=== PATIENT | male | born 1955 | race Caucasian/White ===

== ENCOUNTER 2016-12-18 17:40 | Inpatient (IN) | payer OTHER ==
[~2016-12-18] VITALS: Ht 177.8 cm; Wt 71.2 kg
[~2016-12-18 17:40] MED LIST: ACET325 PO; ASPI325T PO; BACT800T5 PO; DILT120C49 PO; LEVO.1 PO; LISI2.5T55 PO; LORA0.5T PO; SPRY100T OR; VIAG100T PO
[2016-12-18 17:41] VITALS: BP 132/77; PULSE 98; RESP 20; TEMP 98.3; O2SAT 98
--- NOTE | 2016-12-18 18:43 | PD ---
HPI Chief Complaint: Cardiac Complaint Time Seen by Provider: 18:43 Travel History International Travel<30 days: No Contact w/Intl Traveler<30days: No Traveled to known affect area: No History of Present Illness HPI 61-year-old male presents to the emergency department for evaluation of a chill for ablation with RVR. Patient states that around 4:30, he felt his got into A. fib. He does have a history of A. fib, states he had a cardiac ablation done approximately 2 years ago and has not been in A. fib since until today. He states that when it came on, he felt shortness of breath, this has resolved. Patient states he feels like his heart is racing. He denies any chest pain. No abdominal pain. No vomiting. He states his privacy attorney is Dr. Mejia. Patient does report a history of CML and is on Bosulif. Patient is concerned because many medications interact with it. He also has a history of hypothyroidism and states that sometimes that medication changes with Synthroid will put him in A. fib. He states he did have a recent medication change in his Synthroid. Patient states he is not on any anticoagulants at this time. [facility] Past Medical History Arthritis: Yes (NECK) Atrial Fibrillation: Yes Anxiety: Yes (TAKES LORAZEPAM) Heart Rhythm Problems: Yes (ATRIAL FIB) Cancer: Yes (CML ) Cardiovascular Problems: Yes (AFIB(took off meds few years ago)) Chemotherapy: Yes (BOSILUF(CML)) Diminished Hearing: No Endocrine: Yes Gastrointestinal Disorders: No Heparin Induced Thrombocytopen: No Hypertension: Yes Implanted Vascular Access Dvce: No Medical other: Yes (CARDIOVERTED JANUARY 2011 FOR A FIB) Musculoskeletal: Yes (ARTHRITIS NECK) Respiratory: No Thyroid Disease: Yes Past Surgical History Body Medical Devices: SCREW RIGHT FOOT Endocrine Surgery: Yes (THYROIDECTOMY 2010, PAROTID SURGERY LEFT) Joint Replacement: No Oral Surgery: Yes (DENTAL SURGERIES (GUM GRAFTS)) Tonsillectomy: Yes Other Surgery: Yes (THYROID REMOVAL 2010) Social History Alcohol Use: Yes (RARELY) Tobacco Use: No Substance Use: No Allergies-Medications (Allergen,Severity, Reaction): Coded Allergies: No Known Allergies (Unverified , 12/18/16) Reported Meds & Prescriptions Reported Meds & Active Scripts Active Reported Vitamin D (Cholecalciferol) 400 Unit/Ml Drops 400 Units PO DAILY Calcium 1200 (Calcium Carbonate-Vitamin D W/Minerals) 1,200-1,000 Mg-Unit Chew 1 Tab CHEW DAILY Ginseng 100 Mg Cap 1,000 Mg PO BID [bosulif] 500 Mg PO DAILY Temazepam 15 Mg Cap 15 Mg PO HS PRN Synthroid (Levothyroxine Sodium) 150 Mcg Tab 150 Mcg PO DAILY Viagra (Sildenafil Citrate) 100 Mg Tab 100 Mg PO DAILY PRN Lisinopril 2.5 Mg Tab 2.5 Mg PO DAILY Aspirin Low Dose (Aspirin) 81 Mg Chew 81 Mg CHEW DAILY Review of Systems Except as stated in HPI: all other systems reviewed are Neg Physical Exam Narrative GENERAL: Well-nourished, well-developed male patient, ambulatory. Afebrile. SKIN: Focused skin assessment warm/dry. HEAD: Normocephalic. Atraumatic. EYES: No scleral icterus. No injection or drainage. NECK: Supple, trachea midline. No JVD or lymphadenopathy. CARDIOVASCULAR: Tachycardic and irregular rate without murmurs, gallops, or rubs. Patient is in fibrillation heart rate, 145. RESPIRATORY: Breath sounds equal bilaterally. No accessory muscle use. Lungs sounds are clear to auscultation GASTROINTESTINAL: Abdomen soft, non-tender, nondistended. MUSCULOSKELETAL: No cyanosis, or edema. BACK: Nontender without obvious deformity. No CVA tenderness. Data Data Last Documented VS Vital Signs Date Time Temp Pulse Resp B/P Pulse Ox O2 Delivery O2 Flow Rate FiO2 12/18/16 20:31 97 Room Air 12/18/16 20:29 2 12/18/16 20:29 97 18 142/84 12/18/16 17:41 98.3 Orders Electrocardiogram (12/18/16 ) Basic Metabolic Panel (Bmp) (12/18/16 18:33) Ckmb (Isoenzyme) Profile (12/18/16 18:33) Complete Blood Count With Diff (12/18/16 18:33) Magnesium (Mg) (12/18/16 18:33) Prothrombin Time / Inr (Pt) (12/18/16 18:33) Act Partial Throm Time (Ptt) (12/18/16 18:33) Troponin I (12/18/16 18:33) Chest, Single Ap (12/18/16 18:33) Ecg Monitoring (12/18/16 18:33) Bilateral Bp Monitoring (12/18/16 18:33) Iv Access Insert/Monitor (12/18/16 18:33) Oximetry (12/18/16 18:33) Oxygen Administration (12/18/16 18:33) Sodium Chloride 0.9% Flush (Ns Flush) (12/18/16 18:45) Metoprolol Tartrate Inj (Lopressor Inj) (12/18/16 18:45) Thyroid Stimulating Hormone (12/18/16 18:43) Metoprolol Tartrate Inj (Lopressor Inj) (12/18/16 20:00) CKMB (12/18/16 19:40) CKMB% (12/18/16 19:40) Enoxaparin Inj (Lovenox Inj) (12/18/16 20:45) Labs Laboratory Tests Test 12/18/16 19:40 White Blood Count 10.7 TH/MM3 Red Blood Count 4.21 MIL/MM3 Hemoglobin 12.8 GM/DL Hematocrit 37.5 % Mean Corpuscular Volume 89.0 FL Mean Corpuscular Hemoglobin 30.3 PG Mean Corpuscular Hemoglobin 34.1 % Concent Red Cell Distribution Width 13.9 % Platelet Count 287 TH/MM3 Mean Platelet Volume 7.8 FL Neutrophils (%) (Auto) 72.7 % Lymphocytes (%) (Auto) 16.9 % Monocytes (%) (Auto) 8.7 % Eosinophils (%) (Auto) 1.1 % Basophils (%) (Auto) 0.6 % Neutrophils # (Auto) 7.8 TH/MM3 Lymphocytes # (Auto) 1.8 TH/MM3 Monocytes # (Auto) 0.9 TH/MM3 Eosinophils # (Auto) 0.1 TH/MM3 Basophils # (Auto) 0.1 TH/MM3 CBC Comment DIFF FINAL Differential Comment Prothrombin Time 10.0 SEC Prothromb Time International 0.9 RATIO Ratio Activated Partial 27.4 SEC Thromboplast Time Sodium Level 140 MEQ/L Potassium Level 3.9 MEQ/L Chloride Level 105 MEQ/L Carbon Dioxide Level 25.6 MEQ/L Anion Gap 9 MEQ/L Blood Urea Nitrogen 19 MG/DL Creatinine 1.17 MG/DL Estimat Glomerular Filtration 63 ML/MIN Rate Random Glucose 110 MG/DL Calcium Level 8.6 MG/DL Magnesium Level 2.4 MG/DL Total Creatine Kinase 241 U/L Creatine Kinase MB 3.8 NG/ML Troponin I 0.05 NG/ML Thyroid Stimulating Hormone 1.990 uIU/ML 3rd Gen [facility] Medical Decision Making Medical Screen Exam Complete: Yes Emergency Medical Condition: Yes Medical Record Reviewed: Yes Interpretation(s) chest x-ray - CONCLUSION: No acute disease. Differential Diagnosis Atrial fibrillation with RVR versus hypothyroidism versus electrolyte abnormality versus ACS Narrative Course 61-year-old male presents to the emergency department for evaluation of fast heart rate, concerned that he is in A. fib. EKG done in triage shows atrial for ablation with RVR, heart rate 145. CBC, BMP, CK, troponin, TSH, magnesium, PTT, PTT/INR are ordered and pending. Chest x-ray is ordered and pending. Patient states that he is on Bosulif, which interacts with many medications. According to lexicomp on UpToDate, Cardizem and amiodarone are contraindicated with Bosulif. Patient is given Lopressor 5 mg IV. CBC shows no acute abnormality. BMP shows no acute abnormality. CK is 241. Troponin is 0.05. Magnesium is 2.4. TSH is 1.990. Coags show no acute abnormality. Chest x-ray shows no acute disease. Heart rate is still ranging between 115 and 140. Patient is given second dose of Lopressor 5 mg IV. Blood pressure remained stable. Heart rate is now between [address] Mejia, patient's privacy attorney, is paged. [phone] - I spoke with Dr. Randhawa who is auto adjudication specialist for Dr. Mejia. He states he would like the patient had metoprolol 5 mg IV every 6 hours. If this does not control her heart rate, the patient can be started on a labetalol or esmolol drip. He would also like the patient be started on Lovenox and admitted. [facility] is paged for admission. Dr. Best accepted admission. Diagnosis Primary Impression: Atrial fibrillation with RVR Admitting Information Admitting Physician Requests: Jeanette Castellanos Dec 18, 2016 18:43
[2016-12-18] MEDS ORDERED: SODIUM CHLORIDE 0.9% FLUSH 10 ML FLUSH IVF PRN (18:45)
[2016-12-18] MEDS ORDERED: METOPROLOL TARTRATE 5 MG/5 ML VIAL IV PUSH ONE ×2 (18:45→20:00)
--- NOTE | 2016-12-18 19:03 | RADRPT ---
EXAM DATE/TIME: 12/18/2016 18:48 [place] COMPARISON: CHEST SINGLE AP, September 19, 2013, 10:56. INDICATIONS : Shortness of breath. MEDICAL HISTORY : None. SURGICAL HISTORY : None. ENCOUNTER: Initial ACUITY: 1 day PAIN SCORE: 0/10 LOCATION: Bilateral chest FINDINGS: A single view of the chest demonstrates the lungs to be symmetrically aerated without evidence of mas s, infiltrate or effusion. The cardiomediastinal contours are unremarkable. Osseous structures are intact. CONCLUSION: No acute disease. Renard Yu MD on December 18, 2016 at 19:02 Board Certified Radiologist. This report was verified electronically.
[2016-12-18 19:10] VITALS: BP 120/91; PULSE 145; RESP 18; O2SAT 99
[2016-12-18] MEDS ORDERED: LEVO.15 PO (19:19)
[2016-12-18] MEDS ORDERED: GINS100C2 PO (19:19)
[2016-12-18] MEDS ORDERED: CHOL400D2 PO (19:19)
[2016-12-18] MEDS ORDERED: LISI2.5T3 PO (19:19)
[2016-12-18] MEDS ORDERED: VIAG100T PO (19:19)
[2016-12-18] MEDS ORDERED: CALCCHW9 CHEW (19:19)
[2016-12-18] MEDS ORDERED: ASPI81CH37 CHEW (19:19)
[2016-12-18] MEDS ORDERED: TEMA15CA PO (19:19)
[2016-12-18] MEDS ORDERED: BOSULIF PO (19:19)
[2016-12-18 20:11] LABS: APTT (PATIENT) 27.4 SEC (24.3-30.1); INTERNATIONAL NORMALIZED RATIO 0.9 RATIO
[2016-12-18 20:17] LABS: ANION GAP 9 MEQ/L (5-15); BICARBONATE 25.6 MEQ/L (21.0-32.0); BLOOD UREA NITROGEN 19 MG/DL (7-18); CHLORIDE 105 MEQ/L (98-107); GLOMERULAR FILTRATION RATE 63 ML/MIN (>89); MAGNESIUM 2.4 MG/DL (1.5-2.5); POTASSIUM 3.9 MEQ/L (3.5-5.1); SODIUM (NA) 140 MEQ/L (136-145)
[2016-12-18 20:20] LABS: AUTOMATED NEUTROPHIL # 7.8 TH/MM3 (1.8-7.7); BASOPHIL # 0.1 TH/MM3 (0-0.2); BASOPHIL % 0.6 % (0.0-2.0); EOSINOPHIL # 0.1 TH/MM3 (0-0.4); EOSINOPHIL % 1.1 % (0.0-4.0); HEMATOCRIT 37.5 % (39.0-51.0); HEMO FLAGS DIFF FINAL; LYMPH % 16.9 % (9.0-44.0); LYMPHOCYTE # 1.8 TH/MM3 (1.0-4.8); MEAN CORPUSCULAR HEMOGLOBIN 30.3 PG (27.0-34.0); MEAN CORPUSCULAR HGB CONC 34.1 % (32.0-36.0); MONO % 8.7 % (0.0-8.0); NEUT % 72.7 % (16.0-70.0); PLATELET COUNT 287 TH/MM3 (150-450); RED BLOOD COUNT 4.21 MIL/MM3 (4.50-5.90); RED CELL DISTRIBUTION WIDTH 13.9 % (11.6-17.2); WHITE BLOOD COUNT 10.7 TH/MM3 (4.0-11.0)
[2016-12-18 20:21] LABS: CREATINE KINASE 241 U/L (39-308)
[2016-12-18 20:29] VITALS: BP 142/84; PULSE 97; RESP 18; O2SAT 97
[2016-12-18 20:31] VITALS: O2SAT 97
[2016-12-18 20:33] LABS: CKMB 3.8 NG/ML (0.5-3.6)
[2016-12-18] MEDS ORDERED: ENOXAPARIN SODIUM 80 MG/0.8 ML SYRINGE SQ ONE (20:45)
[2016-12-18] MEDS ORDERED: ONDANSETRON HCL 4 MG/2 ML VIAL IVP PRN (22:15)
[2016-12-18] MEDS ORDERED: SODIUM CHLORIDE 0.9% FLUSH 10 ML FLUSH IV FLUSH PRN (22:15)
[2016-12-18] MEDS ORDERED: ACETAMINOPHEN/HYDROcodone 325 MG/5 MG TAB PO PRN (22:15)
[2016-12-18] MEDS ORDERED: MORPHINE SULFATE 4 MG/ML INJ IV PRN (22:15)
[2016-12-18] MEDS ORDERED: BISACODYL 10 MG SUPP RECTAL PRN (22:15)
[2016-12-18] MEDS ORDERED: ACETAMINOPHEN 325 MG TAB PO PRN (22:15)
--- NOTE | 2016-12-18 22:24 | HHI.HP ---
[facility] Physician Yaw Peñaloza MD Admission Diagnosis atrial fibrillation with RVR Diagnoses: (1) Atrial fibrillation with RVR Diagnosis: Principal (2) Dehydration Diagnosis: Principal (3) Hypothyroid Diagnosis: Principal (4) CML (chronic myelocytic leukemia) Diagnosis: Principal Travel History International Travel<30 Days: No Contact w/Intl Traveler <30 Da: No Traveled to Known Affected Are: No History of Present Illness This is a 61-year-old male with PMH of Anxiety, A. fib on ASA, CML on Bosulif and Hypothyroidism who presented to the ER w/ complaints of palpitations and SOB. Denies fever, chills or chest pain. On arrival, noted to be in A-fib RVR w/ HR 140-150's. Interaction w/ Cardizem and Bosulif, therefore given Lopressor 5mg IV x2 doses in ER, HR currently 80-90's. Follows w/ Dr. Mejia as outpatient, Dr. Randhawa consulted by ER physician, recommended Lopressor 5mg IV q6h and Lopressor or Esmolol gtt if needed. CBC unremarkable. Chemistry essentially unremarkable except for GFR 63. Troponin 0.05. TSH 1.99. CXR with no acute findings. Review of Systems Except as stated in HPI: all other systems reviewed are Neg ROS: 14 point review of systems otherwise negative. Past Family Social History Past Medical History PMH: Anxiety, A. fib on ASA, CML on Bosulif and Hypothyroidism Past Surgical History PAST SURGICAL HISTORY: Tonsillectomy, Dental Surgery, Right Foot Surgery, Cardiac Ablation Allergies: Coded Allergies: No Known Allergies (Unverified , 12/18/16) Family History PAST FAMILY HISTORY: Reviewed. No h/o DM or CAD Social History PAST SOCIAL HISTORY: Occasional alcohol. Negative for tobacco or drugs. Physical Exam Vital Signs Vital Signs Date Time Temp Pulse Resp B/P Pulse Ox O2 Delivery O2 Flow Rate FiO2 12/18/16 20:31 97 Room Air 12/18/16 20:29 98 Nasal Cannula 2 12/18/16 20:29 97 18 142/84 97 Room Air 12/18/16 19:10 145 18 120/91 99 12/18/16 18:23 158 18 100 Room Air 12/18/16 17:41 98.3 98 20 132/77 98 Room Air Physical Exam PE: GENERAL: Pleasant middle-aged male in no acute distress. HEENT: PERRLA, EOMI. No scleral icterus or conjunctival pallor. No lid lag or facial droop. CARDIOVASCULAR: Irregularly irregular, in A. fib, HR 80-90s. No obvious murmurs to auscultation. No chest tenderness to palpation. RESPIRATORY: No obvious rhonchi or wheezing. Clear to auscultation. Breath sounds equal bilaterally. GASTROINTESTINAL: Abdomen soft, non-tender, nondistended. BS normal. MUSCULOSKELETAL: Extremities without clubbing, cyanosis, or edema. No obvious deformities. NEUROLOGICAL: Awake, alert and oriented x4. No focal neurologic deficits. Moving both upper and lower extremities spontaneously. Laboratory Laboratory Tests Test 12/18/16 19:40 White Blood Count 10.7 Red Blood Count 4.21 Hemoglobin 12.8 Hematocrit 37.5 Mean Corpuscular Volume 89.0 Mean Corpuscular Hemoglobin 30.3 Mean Corpuscular Hemoglobin 34.1 Concent Red Cell Distribution Width 13.9 Platelet Count 287 Mean Platelet Volume 7.8 Neutrophils (%) (Auto) 72.7 Lymphocytes (%) (Auto) 16.9 Monocytes (%) (Auto) 8.7 Eosinophils (%) (Auto) 1.1 Basophils (%) (Auto) 0.6 Neutrophils # (Auto) 7.8 Lymphocytes # (Auto) 1.8 Monocytes # (Auto) 0.9 Eosinophils # (Auto) 0.1 Basophils # (Auto) 0.1 CBC Comment DIFF FINAL Differential Comment Prothrombin Time 10.0 Prothromb Time International 0.9 Ratio Activated Partial 27.4 Thromboplast Time Sodium Level 140 Potassium Level 3.9 Chloride Level 105 Carbon Dioxide Level 25.6 Anion Gap 9 Blood Urea Nitrogen 19 Creatinine 1.17 Estimat Glomerular Filtration 63 Rate Random Glucose 110 Calcium Level 8.6 Magnesium Level 2.4 Total Creatine Kinase 241 Creatine Kinase MB 3.8 Troponin I 0.05 Thyroid Stimulating Hormone 1.990 3rd Gen Result Diagram: 12/18/16193912/18/161939 Assessment and Plan Problem List: (1) Atrial fibrillation with RVR ICD Code: I48.91 Status: Acute (2) Dehydration ICD Code: E86.0 Status: Acute (3) CML (chronic myelocytic leukemia) ICD Code: C92.10 Status: Acute (4) Hypothyroid ICD Code: E03.9 Status: Acute Assessment and Plan A/P: 1. A-fib w/ RVR: h/o A-fib s/p cardioversion, controlled since then, now w/ A- fib w/ RVR, HR 140-150's, s/p Lopressor 5mg IV x2 doses in ER, HR now 80-90's. Follows w/ Dr. Mejia as outpatient, Dr. Randhawa consulted by ER physician, recommended Lopressor 5mg IV q6h and Lopressor or Esmolol gtt if needed and Lovenox. Currently rate-controlled. Admit for Observation, telemetry, will monitor. Cardio to eval in am. CXR w/ no acute findings, images reviewed by me. 2. Dehydration: possibly contributing to A-fib, GFR 63. Check U/a, IVF for hydration. Repeat labs in am. 3. CML: Currently on treatment w/ Bosulif, interaction w/ Cardizem, therefore will continue w/ Lopressor as recommended. 4. Hypothyroid: TSH normal. Continue home medications. 5. DVT Prophylaxis: Lovenox 6. Social work for d/c planning as needed. 7. Case discussed w/ ER physician at length Sandra Best MD Dec 18, 2016 22:24
[2016-12-18] MEDS ORDERED: PILL SPLITTER OTHER PRN (22:30)
[2016-12-18 22:50] VITALS: BP 120/81; PULSE 120; RESP 18; O2SAT 98
[2016-12-18] MEDS: SODIUM CHLOR 0.9% 1000 ML INJ 1,000 ML IV SCH (22:52)
[2016-12-19] VITALS (22 sets, daily range): BP systolic 117–128; BP diastolic 73–80; PULSE 74–128; RESP 12–18; TEMP 98.3–98.7; O2SAT 99–100
[2016-12-19] MEDS: METOPROLOL TARTRATE 5 MG/5 ML VIAL IV PUSH SCH ×5 (00:28→23:08)
[2016-12-19] MEDS: TEMAZEPAM 15 MG CAP PO PRN ×2 (00:30→23:08)
[2016-12-19 03:16] LABS: BLOOD, URINE MOD (NEG); COMMENT (UR) CULT NOT INDICATED; CULTURE IF INDICATED CULT NOT INDICATED; GLUCOSE,URINE NEG (NEG); KETONE, URINE NEG (NEG); MUCUS URINE FEW /lpf (OCC); NITRITE,URINE NEG (NEG); PH, URINE 6.5 (5.0-8.5); URINE COLOR LIGHT-YELLOW (YELLW/STRAW)
[2016-12-19 06:32] LABS: ALT (GPT) 16 U/L (12-78); ANION GAP 8 MEQ/L (5-15); AST (GOT) 18 U/L (15-37); BICARBONATE 26.2 MEQ/L (21.0-32.0); BLOOD UREA NITROGEN 15 MG/DL (7-18); CHLORIDE 107 MEQ/L (98-107); GLOMERULAR FILTRATION RATE 68 ML/MIN (>89); POTASSIUM 3.8 MEQ/L (3.5-5.1); SODIUM (NA) 141 MEQ/L (136-145)
[2016-12-19 06:34] LABS: ALKALINE PHOSPHATASE 57 U/L (45-117); TOTAL BILIRUBIN ADULT 0.4 MG/DL (0.2-1.0)
[2016-12-19 06:57] LABS: AUTOMATED NEUTROPHIL # 5.1 TH/MM3 (1.8-7.7); BASOPHIL # 0.1 TH/MM3 (0-0.2); BASOPHIL % 0.7 % (0.0-2.0); EOSINOPHIL # 0.2 TH/MM3 (0-0.4); EOSINOPHIL % 1.9 % (0.0-4.0); HEMATOCRIT 35.1 % (39.0-51.0); HEMO FLAGS DIFF FINAL; LYMPH % 30.2 % (9.0-44.0); LYMPHOCYTE # 2.7 TH/MM3 (1.0-4.8); MEAN CELL VOLUME 89.2 FL (80.0-100.0); MEAN CORPUSCULAR HEMOGLOBIN 30.5 PG (27.0-34.0); MEAN CORPUSCULAR HGB CONC 34.1 % (32.0-36.0); MONO % 9.7 % (0.0-8.0); NEUT % 57.5 % (16.0-70.0); PLATELET COUNT 265 TH/MM3 (150-450); RED BLOOD COUNT 3.94 MIL/MM3 (4.50-5.90); RED CELL DISTRIBUTION WIDTH 13.8 % (11.6-17.2); WHITE BLOOD COUNT 8.8 TH/MM3 (4.0-11.0)
[2016-12-19] MEDS: SODIUM CHLOR 0.9% 1000 ML INJ 1,000 ML IV SCH ×2 (09:10→18:39)
[2016-12-19] MEDS: LISINOPRIL 5 MG TAB PO SCH (09:12)
[2016-12-19] MEDS: ASPIRIN 81 MG CHEW TAB CHEW SCH (09:12)
[2016-12-19] MEDS: SODIUM CHLORIDE 0.9% FLUSH 10 ML FLUSH IV FLUSH SCH ×2 (09:12→20:01)
[2016-12-19] MEDS: ENOXAPARIN SODIUM 80 MG/0.8 ML SYRINGE SQ SCH ×2 (09:12→20:01)
--- NOTE | 2016-12-19 13:07 | HHI.PR ---
Subjective Remarks Patient seen and examined this am. [employer]ive[employer] at bedside. He denies CP or SOB. Tolerating diet. Report that when his synthroid dose is increased, he then has issues with A-fib. Dose was increased a month a go. Last time he went into a fib his ultrasonic cleaner cardioconverted him, this was a few months ago. He has been in sinus rhythm since that time. Was not on any rate controlled medication and only an ASA. He wants to have another cardioversion. Objective Vital Signs Date Time Temp Pulse Resp B/P Pulse Ox O2 Delivery O2 Flow Rate FiO2 12/19/16 08:00 98.5 87 16 119/80 100 12/19/16 07:23 89 12/19/16 06:00 90 12/19/16 05:00 98 12/19/16 04:00 90 12/19/16 03:00 98.5 86 12 117/80 100 12/19/16 03:00 86 12/19/16 02:16 86 18 12/18/16 22:50 120 18 120/81 98 12/18/16 20:31 97 Room Air 12/18/16 20:29 98 Nasal Cannula 2 12/18/16 20:29 97 18 142/84 97 Room Air 12/18/16 19:10 145 18 120/91 99 12/18/16 18:23 158 18 100 Room Air 12/18/16 17:41 98.3 98 20 132/77 98 Room Air I/O 12/18/16 12/18/16 12/18/16 12/19/16 12/19/16 12/19/16 07:00 15:00 23:00 07:00 15:00 23:00 Intake Total 440 ml Output Total 350 ml Balance 90 ml Intake Oral 240 ml IV Total 200 ml Output Urine Total 350 ml Result Diagram: 12/19/1651212/19/16512 Imaging Last Impressions Chest X-Ray 12/18/16 1833 Signed Impressions: Service Date/Time: Sunday, December 18, 2016 18:48 - CONCLUSION: No acute disease. Renard Yu MD Other Results GENERAL: sitting up eating breakfast, well appearing SKIN: Warm and dry. HEAD: Normocephalic. EYES: No scleral icterus. No injection or drainage. NECK: Supple, trachea midline. No JVD or lymphadenopathy. CARDIOVASCULAR: Irregular rhythm, HR in the 120s on telemetry,no murmurs appreciated. RESPIRATORY: Breath sounds equal bilaterally. No accessory muscle use. GASTROINTESTINAL: Abdomen soft, non-tender, nondistended. MUSCULOSKELETAL: No cyanosis, or edema. No calf tenderness. BACK: Nontender without obvious deformity A/P Problem List: (1) Atrial fibrillation with RVR ICD Code: I48.91 (2) Hypothyroid ICD Code: E03.9 (3) CML (chronic myelocytic leukemia) ICD Code: C92.10 Assessment and Plan 61 yo male with medical history of hypothyrodism and a-fib that resolved s/p cardioversion presented to ED yesterday with A-Fib in RVR. 1. A-Fib w/ RVR: ultrasonic cleaner consulted, await their recommendations. s/p lopressor IV. On telemetry. Lovenox for DVT prophylaxis. Cont patient ASA. Await ultrasonic cleaner reccs regarding rate control and anticoagulation. Patient cannot be on cardizem because of his cancer medications. 2. CML: Currently on treatment w/ Bosulif, interaction w/ Cardizem, therefore will continue w/ Lopressor as recommended. 3. Hypothyroidism: cont home Synthroid. recent increase in medication likely contributed to new onset A-Fib. Fluids: NS @ 100 cc/hr Electrolytes: currently wnl Nutrition:heart health diet Discharge Planning anticipate d/c tomorrow pending cards reccs Lupe Seymour MD R3 Dec 19, 2016 13:07
[2016-12-19] MEDS ORDERED: AMIODARONE INJ 450 MG in DEXTROSE 5% IN WATE(EXCEL) INJ 250 ML IV SCH ×2 (13:30)
[2016-12-19] MEDS ORDERED: AMIODARONE INJ 150 MG in DEXTROSE 5% IN WATER 100ML INJ 97 ML IV ONE ×2 (13:30)
[2016-12-19] MEDS ORDERED: AMIODARONE 200 MG TAB PO ONE (13:30)
[2016-12-19] MEDS ORDERED: SODIUM CHLORIDE 0.9% FLUSH 10 ML FLUSH IV FLUSH PRN (13:30)
--- NOTE | 2016-12-19 13:51 | PD.CONS ---
HPI Service Cardiology Physicians Consult Requested By Hospitalist Reason for Consult Afib RVR Primary Care Physician Ywa Peñaloza MD History of Present Illness Mr. Mcdowell is a 61-year-old male with PMH of Anxiety, Afib on ASA, CML on Bosulif and Hypothyroidism who presented to the ER w/ complaints of palpitations and SOB. Denies fever, chills or chest pain. On arrival, noted to be in A-fib RVR w/ HR 140-150's. Interaction w/ Cardizem and Bosulif, therefore given Lopressor 5mg IV x2 doses in ER, HR came down in the 80-90's. Follows w/ Dr. Mejia as outpatient.CBC unremarkable. Chemistry essentially unremarkable except for GFR 63. Troponin 0.05. TSH 1.99. CXR with no acute findings. Patient resting in bed without distress, asymptomatic. Afib rate 120' s per telemetry. BP is stable. He has been cardioverted in the past by Dr. Mejia about 2 years ago. Has problems with afib after his thyroid medication has been adjusted. He denies any chest pain, shortness of breath. He is currently resting in the bed without distress. Review of Systems Consitutional: DENIES: Fatigue, Fever, Chills Eyes: DENIES: Change in vision HEENT: DENIES: Lightheadedness Respiratory: DENIES: Cough, Shortness of breath, Wheezing Cardiovascular: DENIES: Chest pain, Syncope Gastrointestinal: DENIES: Nausea, Vomiting Genitourinary: DENIES: Urinary incontinence, Difficulty voiding Integumentary: DENIES: Rash Neurologic: DENIES: Tingling or numbness, Stroke symptoms Musculoskeletal: DENIES: Joint pain, Muscle pain Psychiatric: DENIES: Anxiety Hematologic: DENIES: Bruising tendencies, Bleeding tendencies Past Family Social History Allergies: Coded Allergies: No Known Allergies (Unverified , 12/18/16) Reported Medications Reported Meds & Active Scripts Active Reported Vitamin D (Cholecalciferol) 400 Unit/Ml Drops 400 Units PO DAILY Calcium 1200 (Calcium Carbonate-Vitamin D W/Minerals) 1,200-1,000 Mg-Unit Chew 1 Tab CHEW DAILY Ginseng 100 Mg Cap 1,000 Mg PO BID [bosulif] 500 Mg PO DAILY Temazepam 15 Mg Cap 15 Mg PO HS PRN Synthroid (Levothyroxine Sodium) 150 Mcg Tab 150 Mcg PO DAILY Viagra (Sildenafil Citrate) 100 Mg Tab 100 Mg PO DAILY PRN Lisinopril 2.5 Mg Tab 2.5 Mg PO DAILY Aspirin Low Dose (Aspirin) 81 Mg Chew 81 Mg CHEW DAILY Active Ordered Medications Current Medications Medications (Trade) Dose Ordered Sig/Bang Route Start Time Stop Time Status Last Admin (NS 1000 ml Inj) 1,000 ml @ 100 mls/hr Q10H IV 12/18/16 22:05 12/19/16 09:10 (NS Flush) 2 ml UNSCH PRN IV FLUSH 12/18/16 22:15 (NS Flush) 2 ml BID IV FLUSH 12/19/16 09:00 (Zofran Inj) 4 mg Q6H PRN IVP 12/18/16 22:15 (Dulcolax Supp) 10 mg DAILY PRN RECTAL 12/18/16 22:15 (Tylenol) 650 mg Q6H PRN PO 12/18/16 22:15 ([place] 5-325 Mg) 1 tab Q4H PRN PO 12/18/16 22:15 (Morphine Inj) 2 mg Q3H PRN IV 12/18/16 22:15 (Aspirin Chew) 81 mg DAILY CHEW 12/19/16 09:00 12/19/16 09:12 (Restoril) 15 mg HS PRN PO 12/18/16 22:15 12/19/16 00:30 (Prinivil) 2.5 mg DAILY PO 12/19/16 09:00 12/19/16 09:12 (Lopressor Inj) 5 mg Q6H IV PUSH 12/19/16 00:00 12/19/16 12:07 (Lovenox Inj) 80 mg Q12H SQ 12/19/16 09:00 12/19/16 09:12 (Pill Splitter) 1 ea UNSCH PRN OTHER 12/18/16 22:30 Physical Exam Vital Signs Vital Signs Date Time Temp Pulse Resp B/P Pulse Ox O2 Delivery O2 Flow Rate FiO2 12/19/16 08:00 98.5 87 16 119/80 100 12/19/16 07:23 89 12/19/16 06:00 90 12/19/16 05:00 98 12/19/16 04:00 90 12/19/16 03:00 98.5 86 12 117/80 100 12/19/16 03:00 86 12/19/16 02:16 86 18 12/18/16 22:50 120 18 120/81 98 12/18/16 20:31 97 Room Air 12/18/16 20:29 98 Nasal Cannula 2 12/18/16 20:29 97 18 142/84 97 Room Air 12/18/16 19:10 145 18 120/91 99 12/18/16 18:23 158 18 100 Room Air 12/18/16 17:41 98.3 98 20 132/77 98 Room Air Physical Exam GENERAL: SKIN: Warm and dry. HEAD: Atraumatic. Normocephalic. EYES: Pupils equal and round. No scleral icterus. No injection or drainage. ENT: No nasal bleeding or discharge. Mucous membranes pink and moist. NECK: Trachea midline. No JVD. CARDIOVASCULAR: Irregularly irregular rhythm, no murmurs, rubs. No edema. RESPIRATORY: No accessory muscle use. Clear to auscultation. Breath sounds equal bilaterally. GASTROINTESTINAL: Abdomen soft, non-tender, nondistended. Hepatic and splenic margins not palpable. MUSCULOSKELETAL: Extremities without clubbing, cyanosis, or edema. No obvious deformities. NEUROLOGICAL: Awake and alert. No obvious cranial nerve deficits. Motor grossly within normal limits. Five out of 5 muscle strength in the arms and legs. Normal speech. PSYCHIATRIC: Appropriate mood and affect; insight and judgment normal. Laboratory Laboratory Tests Test 12/18/16 12/19/16 12/19/16 19:40 02:46 05:13 White Blood Count 10.7 8.8 Red Blood Count 4.21 3.94 Hemoglobin 12.8 12.0 Hematocrit 37.5 35.1 Mean Corpuscular Volume 89.0 89.2 Mean Corpuscular Hemoglobin 30.3 30.5 Mean Corpuscular Hemoglobin 34.1 34.1 Concent Red Cell Distribution Width 13.9 13.8 Platelet Count 287 265 Mean Platelet Volume 7.8 7.7 Neutrophils (%) (Auto) 72.7 57.5 Lymphocytes (%) (Auto) 16.9 30.2 Monocytes (%) (Auto) 8.7 9.7 Eosinophils (%) (Auto) 1.1 1.9 Basophils (%) (Auto) 0.6 0.7 Neutrophils # (Auto) 7.8 5.1 Lymphocytes # (Auto) 1.8 2.7 Monocytes # (Auto) 0.9 0.9 Eosinophils # (Auto) 0.1 0.2 Basophils # (Auto) 0.1 0.1 CBC Comment DIFF FINAL DIFF FINAL Differential Comment Prothrombin Time 10.0 Prothromb Time International 0.9 Ratio Activated Partial 27.4 Thromboplast Time Sodium Level 140 141 Potassium Level 3.9 3.8 Chloride Level 105 107 Carbon Dioxide Level 25.6 26.2 Anion Gap 9 8 Blood Urea Nitrogen 19 15 Creatinine 1.17 1.09 Estimat Glomerular Filtration 63 68 Rate Random Glucose 110 87 Calcium Level 8.6 8.2 Magnesium Level 2.4 Total Creatine Kinase 241 Creatine Kinase MB 3.8 Troponin I 0.05 Thyroid Stimulating Hormone 1.990 3rd Gen Urine Color LIGHT-YELLOW Urine Turbidity CLEAR Urine pH 6.5 Urine Specific [place] 1.009 Urine Protein NEG Urine Glucose (UA) NEG Urine Ketones NEG Urine Occult Blood MOD Urine Nitrite NEG Urine Bilirubin NEG Urine Urobilinogen LESS THAN 2.0 Urine Leukocyte Esterase NEG Urine RBC 27 Urine WBC LESS THAN 1 Urine Mucus FEW Microscopic Urinalysis Comment CULT NOT INDICATED Total Bilirubin 0.4 Aspartate Amino Transf 18 (AST/SGOT) Alanine Aminotransferase 16 (ALT/SGPT) Alkaline Phosphatase 57 Total Protein 6.3 Albumin 3.2 Result Diagram: 12/19/16 0513 12/19/16512 Assessment and Plan Assessment and Plan 1. Atrial fibrillation with RVR . 2. Hypothyroidism 3. CML on Bosulif. Will start amiodarone po and drip for rate control. [id number] score 1. On aspirin, lovenox. Will monitor. Code Status full Discussed Condition With Leilani Cruz [facility] Dec 19, 2016 13:51
[2016-12-19] MEDS ORDERED: SODIUM CHLORIDE 0.9% FLUSH 10 ML FLUSH IV FLUSH SCH (21:00)
[2016-12-20] VITALS (26 sets, daily range): BP systolic 118–129; BP diastolic 77–87; PULSE 74–104; RESP 12–16; TEMP 98–99.5; O2SAT 99–100
[2016-12-20] MEDS: SODIUM CHLOR 0.9% 1000 ML INJ 1,000 ML IV SCH ×3 (04:05→23:54)
[2016-12-20] MEDS: METOPROLOL TARTRATE 5 MG/5 ML VIAL IV PUSH SCH (05:36)
[2016-12-20] MEDS: AMIODARONE 200 MG TAB PO SCH (09:03)
[2016-12-20] MEDS: ENOXAPARIN SODIUM 80 MG/0.8 ML SYRINGE SQ SCH ×2 (09:03→20:16)
[2016-12-20] MEDS: LISINOPRIL 5 MG TAB PO SCH (09:03)
[2016-12-20] MEDS: SODIUM CHLORIDE 0.9% FLUSH 10 ML FLUSH IV FLUSH SCH ×2 (09:04→20:16)
[2016-12-20] MEDS: ASPIRIN 81 MG CHEW TAB CHEW SCH (09:04)
--- NOTE | 2016-12-20 10:55 | PD.CARD.PN ---
Subjective Subjective Remarks Feeling better. Anxious about heart rate going back up. Would like to be cardioverted. Objective Medications Vital Signs / I&O Vital Signs Date Time Temp Pulse Resp B/P Pulse Ox O2 Delivery O2 Flow Rate FiO2 12/20/16 10:00 88 12/20/16 09:00 88 12/20/16 08:00 92 12/20/16 08:00 98.0 93 16 120/83 100 12/20/16 07:00 90 12/20/16 06:00 74 12/20/16 05:00 74 12/20/16 04:00 82 12/20/16 03:00 98.0 78 14 119/77 99 12/20/16 03:00 77 12/20/16 02:00 76 12/20/16 01:00 78 12/20/16 00:00 78 12/19/16 23:00 98.6 91 14 124/78 100 12/19/16 23:00 109 12/19/16 22:00 74 12/19/16 21:00 86 12/19/16 20:00 92 12/19/16 19:00 80 12/19/16 19:00 98.7 83 14 119/79 100 12/19/16 18:00 88 12/19/16 17:00 82 12/19/16 16:00 90 12/19/16 16:00 98.5 80 16 121/80 100 12/19/16 15:00 90 12/19/16 14:00 100 12/19/16 13:00 106 12/19/16 12:00 98.3 97 16 128/73 99 12/19/16 12:00 104 12/19/16 11:00 107 I/O 12/19/16 12/19/16 12/19/16 12/20/16 12/20/16 12/20/16 07:00 15:00 23:00 07:00 15:00 23:00 Intake Total 440 ml 2418 ml 1540 ml Output Total 350 ml 850 ml 302 ml Balance 90 ml 1568 ml 1238 ml Intake Oral 240 ml 480 ml 240 ml IV Total 200 ml 1938 ml 1300 ml Output Urine Total 350 ml 850 ml 300 ml Stool Total 2 ml # Bowel Movements 1 Physical Exam GENERAL: Awake, alert. No distress. SKIN: Warm and dry. HEAD: Atraumatic. Normocephalic. EYES: Pupils equal and round. No scleral icterus. No injection or drainage. ENT: No nasal bleeding or discharge. Mucous membranes pink and moist. NECK: Trachea midline. No JVD. CARDIOVASCULAR: Irregularly irregular rhythm. No murmur, rubs, gallops. RESPIRATORY: No accessory muscle use. Clear to auscultation. Breath sounds equal bilaterally. GASTROINTESTINAL: Abdomen soft, non-tender, nondistended. MUSCULOSKELETAL: Extremities without clubbing, cyanosis, or edema. No obvious deformities. NEUROLOGICAL: Awake and alert. No obvious cranial nerve deficits. Motor grossly within normal limits. Five out of 5 muscle strength in the arms and legs. Normal speech. PSYCHIATRIC: Appropriate mood and affect; insight and judgment normal. Assessment and Plan Assessment and Plan 1. Atrial fibrillation with RVR. 2. Hypothyroidism 3. CML on Bosulif. HR controlled. Will continue po amiodarone, low dose beta terrence for rate control. GPD0PT6-BDSd score 1. On aspirin, lovenox. He would like to be cardioverted. Dr. Mejia to follow tomorrow. Code Status full Discussed Condition With Leilani Cruz [facility] Dec 20, 2016 10:55
--- NOTE | 2016-12-20 11:39 | HHI.PR ---
Subjective Remarks Patient seen and examined this am. He denies CP or SOB. Tolerating diet. HR controlled on IV amio, switched to PO amio, HR is still controlled. Patient wants to be cardioverted. 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 Objective Vital Signs Date Time Temp Pulse Resp B/P Pulse Ox O2 Delivery O2 Flow Rate FiO2 12/20/16 10:00 88 12/20/16 09:00 88 12/20/16 08:00 92 12/20/16 08:00 98.0 93 16 120/83 100 12/20/16 07:00 90 12/20/16 06:00 74 12/20/16 05:00 74 12/20/16 04:00 82 12/20/16 03:00 98.0 78 14 119/77 99 12/20/16 03:00 77 12/20/16 02:00 76 12/20/16 01:00 78 12/20/16 00:00 78 12/19/16 23:00 98.6 91 14 124/78 100 12/19/16 23:00 109 12/19/16 22:00 74 12/19/16 21:00 86 12/19/16 20:00 92 12/19/16 19:00 80 12/19/16 19:00 98.7 83 14 119/79 100 12/19/16 18:00 88 12/19/16 17:00 82 12/19/16 16:00 90 12/19/16 16:00 98.5 80 16 121/80 100 12/19/16 15:00 90 12/19/16 14:00 100 12/19/16 13:00 106 12/19/16 12:00 98.3 97 16 128/73 99 12/19/16 12:00 104 I/O 12/19/16 12/19/16 12/19/16 12/20/16 12/20/16 12/20/16 07:00 15:00 23:00 07:00 15:00 23:00 Intake Total 440 ml 2418 ml 1540 ml Output Total 350 ml 850 ml 302 ml Balance 90 ml 1568 ml 1238 ml Intake Oral 240 ml 480 ml 240 ml IV Total 200 ml 1938 ml 1300 ml Output Urine Total 350 ml 850 ml 300 ml Stool Total 2 ml # Bowel Movements 1 Result Diagram: 4/1/17 0513 12/19/16 0513 Imaging Last Impressions Chest X-Ray 12/18/16 1833 Signed Impressions: Service Date/Time: Sunday, December 18, 2016 18:48 - CONCLUSION: No acute disease. Renard Yu MD Objective Remarks GENERAL: well appearing, nad SKIN: Warm and dry. HEAD: Normocephalic. EYES: No scleral icterus. No injection or drainage. NECK: Supple, trachea midline. No JVD or lymphadenopathy. CARDIOVASCULAR: Irregular rhythm, rate <90 without murmurs, gallops, or rubs. RESPIRATORY: Breath sounds equal bilaterally. No accessory muscle use. GASTROINTESTINAL: Abdomen soft, non-tender, nondistended. MUSCULOSKELETAL: No cyanosis, or edema. BACK: Nontender without obvious deformity. No CVA tenderness. A/P Problem List: (1) Atrial fibrillation with RVR ICD Code: I48.91 (2) Hypothyroid ICD Code: E03.9 (3) CML (chronic myelocytic leukemia) ICD Code: C92.10 Assessment and Plan 61 yo male with medical history of hypothyrodism and a-fib that resolved s/p cardioversion presented to ED 12/17 with A-Fib in RVR. 1. A-Fib w/ RVR: Cardiology following (known to Jackie) Lovenox 80 mg BID, amiodarone 200 mg daily. Cont patient ASA. Patient cannot be on cardizem because of his cancer medications. Desires cardioversion, as patient had this in the past. Deferred to Dr. Mejia. 2. CML: Currently on treatment w/ Bosulif, interaction w/ Cardizem, therefore will continue w/ Lopressor as recommended. 3. Hypothyroidism: cont home Synthroid. recent increase in medication likely contributed to new onset A-Fib. Fluids: NS @ 100 cc/hr Electrolytes: currently wnl Nutrition:heart health diet Discharge Planning d/c pending reccs by Dr. Mejia, cardiovert vs. medical management. Lupe Seymour MD R3 Dec 20, 2016 11:39
[2016-12-20] MEDS: LEVOTHYROXINE SODIUM 150 MCG TAB PO SCH (11:49)
[2016-12-20] MEDS: METOPROLOL TARTRATE 25 MG TAB PO SCH ×2 (11:49→20:16)
--- NOTE | 2016-12-20 21:28 | EKG ---
Date Performed: 12/18/2016 Time Performed: 18:09:49 PTAGE: 61 years EKG: ATRIAL FIBRILLATION WITH RAPID VENTRICULAR RESPONSE MODERATE ST DEPRESSION ABNORMAL ECG PREVIOUS TRACING : 10/03/2013 18.48 DOCTOR: Nelida Mack Interpretating Date/Time 12/20/2016 21:23:31
[2016-12-20] MEDS: TEMAZEPAM 15 MG CAP PO PRN (23:54)
[2016-12-21] VITALS (26 sets, daily range): BP systolic 115–134; BP diastolic 71–92; PULSE 74–128; RESP 12–18; TEMP 97.9–98.8; O2SAT 97–100
[2016-12-21] MEDS: LEVOTHYROXINE SODIUM 150 MCG TAB PO SCH (05:25)
[2016-12-21] MEDS: LISINOPRIL 5 MG TAB PO SCH (09:07)
[2016-12-21] MEDS: METOPROLOL TARTRATE 25 MG TAB PO SCH ×2 (09:07→20:50)
[2016-12-21] MEDS: AMIODARONE 200 MG TAB PO SCH (09:07)
[2016-12-21] MEDS: ASPIRIN 81 MG CHEW TAB CHEW SCH (09:08)
[2016-12-21] MEDS: SODIUM CHLORIDE 0.9% FLUSH 10 ML FLUSH IV FLUSH SCH ×2 (09:08→20:51)
[2016-12-21] MEDS: ENOXAPARIN SODIUM 80 MG/0.8 ML SYRINGE SQ SCH (09:08)
--- NOTE | 2016-12-21 10:08 | HHI.PR ---
Subjective Remarks Follow up fib. Denies palpitations, dizziness, chest pain and shortness of breath. Awaiting anaesthesiologist recommendation regarding cardioversion. Discussed with RN Objective Vitals Vital Signs Date Time Temp Pulse Resp B/P Pulse Ox O2 Delivery O2 Flow Rate FiO2 12/21/16 06:00 128 12/21/16 05:00 88 12/21/16 04:00 82 12/21/16 03:00 98.1 81 12 130/85 100 12/21/16 03:00 75 12/21/16 02:00 84 12/21/16 01:00 84 12/21/16 00:00 90 12/20/16 23:00 98.4 79 12 118/81 99 12/20/16 23:00 88 12/20/16 22:00 84 12/20/16 21:00 94 12/20/16 20:00 94 12/20/16 19:00 104 12/20/16 19:00 98.1 88 14 129/86 99 12/20/16 18:00 98 12/20/16 17:05 97 12/20/16 16:19 85 12/20/16 15:30 99.5 93 16 126/87 100 12/20/16 15:00 88 12/20/16 14:00 88 12/20/16 13:00 96 12/20/16 12:00 92 12/20/16 11:30 99.2 83 16 123/79 99 12/20/16 11:00 86 I/O 12/20/16 12/20/16 12/20/16 12/21/16 12/21/16 12/21/16 07:00 15:00 23:00 07:00 15:00 23:00 Intake Total 1540 ml 1800 ml 1340 ml Output Total 302 ml 450 ml 1250 ml Balance 1238 ml 1350 ml 90 ml Intake Oral 240 ml 700 ml 240 ml IV Total 1300 ml 1100 ml 1100 ml Output Urine Total 300 ml 450 ml 1250 ml Stool Total 2 ml # Voids 1 # Bowel Movements 2 Result Diagram: 12/19/16 0513 12/19/16 0513 Imaging Last Impressions Chest X-Ray 12/18/16 1833 Signed Impressions: Service Date/Time: Sunday, December 18, 2016 18:48 - CONCLUSION: No acute disease. Renard Yu MD Objective Remarks GENERAL: well appearing, nad SKIN: Warm and dry. HEAD: Normocephalic. EYES: No scleral icterus. No injection or drainage. NECK: Supple, trachea midline. No JVD or lymphadenopathy. CARDIOVASCULAR: Irregular rhythm, rate <90 without murmurs, gallops, or rubs. RESPIRATORY: Breath sounds equal bilaterally. No accessory muscle use. GASTROINTESTINAL: Abdomen soft, non-tender, nondistended. MUSCULOSKELETAL: No cyanosis, or edema. BACK: Nontender without obvious deformity. No CVA tenderness. A/P Problem List: (1) Atrial fibrillation with RVR ICD Code: I48.91 Status: Acute (2) Dehydration ICD Code: E86.0 Status: Acute (3) CML (chronic myelocytic leukemia) ICD Code: C92.10 Status: Chronic (4) Hypothyroid ICD Code: E03.9 Status: Chronic Assessment and Plan 61 yo male with medical history of hypothyrodism and a-fib that resolved s/p cardioversion presented to ED 12/17 with A-Fib in RVR. 1. A-Fib w/ RVR: Cardiology following (known to Jackie) Lovenox 80 mg BID, amiodarone 200 mg daily. Cont patient ASA. Patient cannot be on cardizem because of his cancer medications. Desires cardioversion, as patient had this in the past. Deferred to Dr. Mejia. 2. CML: Currently on treatment w/ Bosulif, interaction w/ Cardizem, therefore will continue w/ Lopressor as recommended. 3. Hypothyroidism: cont home Synthroid. recent increase in medication likely contributed to new onset A-Fib. History of microscopic hematuria. Outpatient follow-up Fluids: NS @ 100 cc/hr we'll discontinue Electrolytes: currently wnl Nutrition:heart health diet Blaine Shi MD Dec 21, 2016 10:08
[2016-12-21] MEDS ORDERED: METO25TA3 PO (14:28)
[2016-12-21] MEDS ORDERED: AMIO200T PO (14:28)
--- NOTE | 2016-12-21 14:29 | HHI.DCPOC ---
Discharge Care Plan Diagnosis: (1) Atrial fibrillation with RVR (2) CML (chronic myelocytic leukemia) Your Health Problems Are: Difficulty with ADL Exercise Tolerance Goals to Promote Your Health * To prevent worsening of your condition and complications * To maintain your health at the optimal level Directions to Meet Your Goals Take your medications as prescribed Follow your dietary instruction Follow activity as directed Keep your appointments as scheduled Take your immunizations and boosters as scheduled If your symptoms worsen call your PCP, if no PCP go to Urgent Care Center or Emergency Room Smoking is Dangerous to Your Health. Avoid second hand smoke Call the 24-hour hour crisis hotline for domestic abuse at Blaine Shi MD Dec 21, 2016 14:29
[2016-12-21] MEDS ORDERED: AMIODARONE 200 MG TAB PO ONE (15:00)
--- NOTE | 2016-12-21 15:28 | PD.CARD.PN ---
Subjective Subjective Remarks The patient complains of exertional lightheadedness and SOB while in atrial fibrillation. He is unable to work. He remains in atrial fibrillation at this time. Objective Medications Current Medications Medications (Trade) Dose Ordered Sig/Bang Route Start Time Stop Time Status Last Admin (NS Flush) 2 ml UNSCH PRN IV FLUSH 12/18/16 22:15 (NS Flush) 2 ml BID IV FLUSH 12/19/16 09:00 12/21/16 09:08 (Zofran Inj) 4 mg Q6H PRN IVP 12/18/16 22:15 (Dulcolax Supp) 10 mg DAILY PRN RECTAL 12/18/16 22:15 (Tylenol) 650 mg Q6H PRN PO 12/18/16 22:15 ([place] 5-325 Mg) 1 tab Q4H PRN PO 12/18/16 22:15 (Morphine Inj) 2 mg Q3H PRN IV 12/18/16 22:15 (Restoril) 15 mg HS PRN PO 12/18/16 22:15 12/20/16 23:54 (Prinivil) 2.5 mg DAILY PO 12/19/16 09:00 12/21/16 09:07 (Pill Splitter) 1 ea UNSCH PRN OTHER 12/18/16 22:30 (Cordarone) 200 mg DAILY PO 12/20/16 09:00 12/21/16 09:07 (Lopressor) 25 mg BID PO 12/20/16 11:00 12/21/16 09:07 (Synthroid) 150 mcg DAILY@0600 PO 12/20/16 11:15 12/21/16 05:25 (Xarelto) 20 mg DAILY PO 12/21/16 20:00 Vital Signs / I&O Vital Signs Date Time Temp Pulse Resp B/P Pulse Ox O2 Delivery O2 Flow Rate FiO2 12/21/16 11:50 88 12/21/16 11:50 98.3 88 18 118/82 100 12/21/16 07:30 97.9 86 18 134/92 97 12/21/16 07:30 86 12/21/16 06:00 128 12/21/16 05:00 88 12/21/16 04:00 82 12/21/16 03:00 98.1 81 12 130/85 100 12/21/16 03:00 75 4/3/17 02:00 84 12/21/16 01:00 84 12/21/16 00:00 90 12/20/16 23:00 98.4 79 12 118/81 99 12/20/16 23:00 88 12/20/16 22:00 84 12/20/16 21:00 94 12/20/16 20:00 94 12/20/16 19:00 104 12/20/16 19:00 98.1 88 14 129/86 99 12/20/16 18:00 98 12/20/16 17:05 97 12/20/16 16:19 85 12/20/16 15:30 99.5 93 16 126/87 100 I/O 12/20/16 12/20/16 12/20/16 12/21/16 12/21/16 12/21/16 07:00 15:00 23:00 07:00 15:00 23:00 Intake Total 1540 ml 1800 ml 1340 ml Output Total 302 ml 450 ml 1250 ml Balance 1238 ml 1350 ml 90 ml Intake Oral 240 ml 700 ml 240 ml IV Total 1300 ml 1100 ml 1100 ml Output Urine Total 300 ml 450 ml 1250 ml Stool Total 2 ml # Voids 1 # Bowel Movements 2 Physical Exam GENERAL: Middle aged male, at bedside SKIN: Warm and dry. HEAD: Normocephalic. EYES: No scleral icterus. No injection or drainage. NECK: Supple, trachea midline. No JVD or lymphadenopathy. CARDIOVASCULAR: Irreg irreg RESPIRATORY: Breath sounds equal bilaterally. No accessory muscle use. GASTROINTESTINAL: Abdomen soft, non-tender, nondistended. MUSCULOSKELETAL: No cyanosis, or edema. BACK: Nontender without obvious deformity. No CVA tenderness. Imaging Last 72 hours Impressions Chest X-Ray 12/18/16 1833 Signed Impressions: Service Date/Time: Sunday, December 18, 2016 18:48 - CONCLUSION: No acute disease. Renard Yu MD Assessment and Plan Assessment and Plan ASSESSMENT Symptomatic, recurrent atrial fibrillation with RVR HTN Hypothyroidism CML Anemia PLAN: Cardioversion tomorrow at noon tomorrow. NPO tonight. Patient understands and accepts risks for LORRI/CV Give another amio 400 mg to load prior to DCC Start Xarelto. patient understands that he will need to stay on Xarelto for at least a month after DCC. Patient seen and evaluated by Margareth Mtz Dec 21, 2016 15:28
[2016-12-21] MEDS: RIVAROXABAN 20 MG TAB PO SCH (20:50)
[2016-12-21] MEDS: TEMAZEPAM 15 MG CAP PO PRN (23:28)
[2016-12-22] VITALS (9 sets, daily range): BP systolic 123–130; BP diastolic 77–88; PULSE 80–96; RESP 14–16; TEMP 97.8–98; O2SAT 98–100
[2016-12-22] MEDS: LEVOTHYROXINE SODIUM 150 MCG TAB PO SCH (05:02)
[2016-12-22] MEDS: AMIODARONE 200 MG TAB PO SCH (08:31)
[2016-12-22] MEDS: LISINOPRIL 5 MG TAB PO SCH (08:31)
[2016-12-22] MEDS: METOPROLOL TARTRATE 25 MG TAB PO SCH (08:31)
[2016-12-22] MEDS: RIVAROXABAN 20 MG TAB PO SCH (08:44)
[2016-12-22] MEDS: SODIUM CHLORIDE 0.9% FLUSH 10 ML FLUSH IV FLUSH SCH (09:00)
--- NOTE | 2016-12-22 10:03 | HHI.PR ---
Subjective Remarks Follow-up A. fib. Still with dyspnea on exertion. Telemetry still shows A. fib with CVR. Awaiting LORRI and cardioversion Objective Vitals Vital Signs Date Time Temp Pulse Resp B/P Pulse Ox O2 Delivery O2 Flow Rate FiO2 12/22/16 07:25 85 12/22/16 07:25 97.8 85 16 123/77 98 12/22/16 06:00 96 12/22/16 05:00 92 12/22/16 04:00 84 12/22/16 03:00 82 12/22/16 03:00 98.0 84 14 130/88 100 12/22/16 02:00 80 12/22/16 01:00 82 12/22/16 00:00 84 12/21/16 23:00 91 12/21/16 23:00 98.4 76 14 118/84 100 12/21/16 22:00 74 12/21/16 21:00 108 12/21/16 20:00 106 12/21/16 19:00 98.5 74 14 122/78 99 12/21/16 19:00 98 12/21/16 18:00 82 12/21/16 17:00 90 12/21/16 16:00 90 12/21/16 15:30 98.8 91 16 115/71 98 12/21/16 15:00 90 12/21/16 14:00 88 12/21/16 13:00 84 12/21/16 12:00 92 12/21/16 11:50 88 12/21/16 11:50 98.3 88 18 118/82 100 12/21/16 11:00 90 I/O 12/21/16 12/21/16 12/21/16 12/22/16 12/22/16 12/22/16 07:00 15:00 23:00 07:00 15:00 23:00 Intake Total 1340 ml 480 ml 240 ml Output Total 1250 ml 900 ml 300 ml Balance 90 ml -420 ml -60 ml Intake Oral 240 ml 480 ml 240 ml IV Total 1100 ml Output Urine Total 1250 ml 900 ml 300 ml # Voids 1 # Bowel Movements 0 Result Diagram: 12/19/16 0513 12/19/16 0513 Imaging Last Impressions Chest X-Ray 12/18/16 0654 Signed Impressions: Service Date/Time: Sunday, December 18, 2016 18:48 - CONCLUSION: No acute disease. Renard Yu MD Objective Remarks GENERAL: well appearing, nad SKIN: Warm and dry. HEAD: Normocephalic. EYES: No scleral icterus. No injection or drainage. NECK: Supple, trachea midline. No JVD or lymphadenopathy. CARDIOVASCULAR: Irregular rhythm, CVR without murmurs, gallops, or rubs. RESPIRATORY: Breath sounds equal bilaterally. No accessory muscle use. GASTROINTESTINAL: Abdomen soft, non-tender, nondistended. MUSCULOSKELETAL: No cyanosis, or edema. BACK: Nontender without obvious deformity. No CVA tenderness. A/P Problem List: (1) Atrial fibrillation with RVR ICD Code: I48.91 Status: Acute (2) Dehydration ICD Code: E86.0 Status: Acute (3) CML (chronic myelocytic leukemia) ICD Code: C92.10 Status: Chronic (4) Hypothyroid ICD Code: E03.9 Status: Chronic Assessment and Plan 61 yo male with medical history of hypothyrodism and a-fib that resolved s/p cardioversion presented to ED 12/17 with A-Fib in RVR. 1. A-Fib w/ RVR: Cardiology following (known to Jackie) Lovenox 80 mg BID switched to Xarelto, amiodarone 200 mg daily status post 400 mg 1 yesterday for loading. Discontinue ASA. Patient cannot be on cardizem because of his cancer medications. For LORRI and cardioversion per Dr. Mejia today. 2. CML: Currently on treatment w/ Bosulif, interaction w/ Cardizem, therefore will continue w/ Lopressor as recommended. 3. Hypothyroidism: cont home Synthroid. recent increase in medication likely contributed to new onset A-Fib. History of microscopic hematuria. Outpatient follow-up Fluids: NS @ 100 cc/hr discontinued Electrolytes: currently wnl Nutrition:heart health diet Discharge Planning Possible discharge later today Blaine Shi MD Dec 22, 2016 10:03
[2016-12-22] MEDS ORDERED: XARE20TA PO (10:07)
--- NOTE | 2017-01-01 13:40 | HHI.DS ---
Discharge Summary Admission Date Dec 19, 2016 at 14:41 Discharge Date: Dec 22, 2016 Admitting Diagnosis atrial fibrillation with RVR (1) Atrial fibrillation with RVR ICD Code: I48.91 Diagnosis: Principal (2) Dehydration ICD Code: E86.0 Diagnosis: Secondary (3) CML (chronic myelocytic leukemia) ICD Code: C92.10 Diagnosis: Secondary (4) Hypothyroid ICD Code: E03.9 Diagnosis: Secondary Procedures LORRI and cardioversion Brief History - From Admission This is a 61-year-old male with PMH of Anxiety, A. fib on ASA, CML on Bosulif and Hypothyroidism who presented to the ER w/ complaints of palpitations and SOB. Denies fever, chills or chest pain. On arrival, noted to be in A-fib RVR w/ HR 140-150's. Interaction w/ Cardizem and Bosulif, therefore given Lopressor 5mg IV x2 doses in ER, HR currently 80-90's. Follows w/ Dr. Mejia as outpatient, Dr. Randhawa consulted by ER physician, recommended Lopressor 5mg IV q6h and Lopressor or Esmolol gtt if needed. CBC unremarkable. Chemistry essentially unremarkable except for GFR 63. Troponin 0.05. TSH 1.99. CXR with no acute findings. Imaging Last Impressions Chest X-Ray 12/18/16 1833 Signed Impressions: Service Date/Time: Sunday, December 18, 2016 18:48 - CONCLUSION: No acute disease. Renard Yu MD PE at Discharge GENERAL: well appearing, nad SKIN: Warm and dry. HEAD: Normocephalic. EYES: No scleral icterus. No injection or drainage. NECK: Supple, trachea midline. No JVD or lymphadenopathy. CARDIOVASCULAR: Irregular rhythm, CVR without murmurs, gallops, or rubs. RESPIRATORY: Breath sounds equal bilaterally. No accessory muscle use. GASTROINTESTINAL: Abdomen soft, non-tender, nondistended. MUSCULOSKELETAL: No cyanosis, or edema. BACK: Nontender without obvious deformity. No CVA tenderness. Hospital Course 61 yo male with medical history of hypothyrodism and a-fib that resolved s/p cardioversion presented to ED 12/17 with A-Fib in RVR. 1. A-Fib w/ RVR: Cardiology following (known to Jackie) Lovenox 80 mg BID switched to Xarelto, amiodarone 200 mg daily status post 400 mg 1 for loading. Discontinued ASA. Patient cannot be on cardizem because of his cancer medications. Status post LORRI and cardioversion by Dr. Mejia 2. CML: Currently on treatment w/ Bosulif, interaction w/ Cardizem, therefore will continue w/ Lopressor as recommended. 3. Hypothyroidism: cont home Synthroid. recent increase in medication likely contributed to new onset A-Fib. History of microscopic hematuria. Outpatient follow-up Fluids: NS @ 100 cc/hr discontinued Electrolytes: currently wnl Nutrition:heart health diet Pt Condition on Discharge: Stable Discharge Disposition: Discharge Home Discharge Time: <= 30 minutes Discharge Instructions Follow up Referrals: Cardiology - 1 Week PCP Follow-up - 1 Week New Medications: Amiodarone (Amiodarone) 200 Mg Tab 200 MG PO DAILY Regulate Heart Beat #31 TAB Metoprolol Tartrate (Metoprolol Tartrate) 25 Mg Tab 25 MG PO BID Regulate Heart Beat #60 TAB Rivaroxaban (Xarelto) 20 Mg Tab 20 MG PO DAILY Prevent Blood Clot #30 TAB Continued Medications: Calcium Carbonate-Vitamin D W/Minerals (Calcium 1200) 1,200-1,000 Mg-Unit Chew 1 TAB CHEW DAILY Nutritional Supplement Ref 0 TAB Cholecalciferol (Vitamin D) 400 Unit/Ml Drops 400 UNITS PO DAILY #1 BOTTLE Ginseng (Ginseng) 100 Mg Cap 1000 MG PO BID Levothyroxine (Synthroid) 150 Mcg Tab 150 MCG PO DAILY Thyroid #30 Ref 0 TAB Lisinopril (Lisinopril) 2.5 Mg Tab 2.5 MG PO DAILY #30 Ref 0 TAB Sildenafil (Viagra) 100 Mg Tab 100 MG PO DAILY PRN ERECTILE DYSFUNCTION Ref 0 TAB Temazepam (Temazepam) 15 Mg Cap 15 MG PO HS PRN INSOMNIA #30 Ref 0 CAP ([bosulif]) 500 MG PO DAILY Discontinued Medications: Aspirin (Aspirin Low Dose) 81 Mg Chew 81 MG CHEW DAILY Ref 0 TAB Blaine Shi MD Jan 01, 2017 13:40
--- NOTE | 2017-01-06 09:41 | CF ---
cc: RAYSHAWN MEJIA M.D. DATE OF PROCEDURE 01/05/2017 PROCEDURE Transesophageal echo. INDICATION 1. Mild mitral regurgitation. 2. Rule out left atrial appendage thrombus. 3. Pre-LORRI. PROCEDURAL STATEMENTS The patient was draped and prepped in the usual manner. Anesthesia was given as per the Anesthesia Department. A full LORRI was performed. Following the LORRI, a cardioversion was performed. FINDINGS The interatrial septum was intact. The interventricular septum was intact. Mitral and tricuspid valves moved normally. There was evidence of mild mitral regurgitation. The left atrial appendage was free of thrombus. The aorta was visualized to 40 cm and free of significant disease. visualized to 40 cm and free of significant disease. CONCLUSION Negative transesophageal echo for thrombus. Mild mitral regurgitation by Doppler. PLAN Proceed with cardioversion. Rayshawn Mejia MD, FRCP,FACC [facility]/GRAHAM /9:28 AM /9:29 AM
--- NOTE | 2017-01-06 11:23 | MP ---
cc: RAYSHAWN MEJIA M.D.RICKMICHAELA DATE OF SURGERY 01/05/2017 PROCEDURE PERFORMED Cardioversion INDICATION Atrial fibrillation PROCEDURE A full LORRI was performed. Following this, a cardioversion was performed after he was checked and there was no evidence of a left atrial thrombus. CONSENT A fully informed consent was obtained prior to the procedures. The risks of , bleeding, myocardial infarction, perforation, aspiration as part of the LORRI was reviewed. The patient fully appeared to understand the risks and was willing to proceed. The risks of cardioversion including cardiac arrest, , stroke, foreseen and unforeseen complications were reviewed. The patient fully appeared to understand and agreed to proceed. PROCEDURAL STATEMENT Following the transesophageal echo, the patient was continue with anesthesia and given a 200 joules synchronized shock which converted him from atrial fibrillation to sinus rhythm/sinus bradycardia. CONCLUSION Successful cardioversion from atrial fibrillation to sinus rhythm/sinus bradycardia. Rayshawn Mejia MD, FRCP,[facility]/DJL /9:29 AM /11:08 AM
== END 2016-12-22 18:02 | disposition home or self-care (01) | DRG 309 ==
LOC: NEPC 17:40 → NEDA 20:52 → NEDH 12-19 00:48 → HCIS 12-19 02:30 → OBSVTOIN 12-19 14:41
PROVIDERS: ADMIT Internal Medicine; ATTEND Internal Medicine
DX: I48.91 Unspecified atrial fibrillation (principal); C92.10 Chronic myeloid leukemia, BCR/ABL-positive, not having achieved remission; E03.9 Hypothyroidism, unspecified; E86.0 Dehydration; Z79.82 Long term (current) use of aspirin; Z79.899 Other long term (current) drug therapy
CPT/HCPCS: 71010; 80048; 80053; 81001; 82550; 82552; 83735; 84443; 84484; 85025; 85610; 85730; 93005; 93312; 93320; 93325; 96374; 96376; G0378; J0282; J1650; J7030; J7060